=== PATIENT | female | born 1960 | race American Indian/Alaskan Native ===

== ENCOUNTER 2020-05-02 16:01 | Emergency (ER) | payer MEDICAID ==
[~2020-05-02] VITALS: Ht 157.5 cm; Wt 68.2 kg
[2020-05-02 16:36] LABS: BASOPHILS % (AUTO) 0.9 % (0-1); EOSINOPHILS # (AUTO) 0.1 X10'3 (0-0.9); EOSINOPHILS % (AUTO) 2.3 % (0-6); HEMATOCRIT 39.3 % (35.0-45.0); HEMOGLOBIN 12.6 g/dl (12.0-16.0); LYMPHOCYTES # (AUTO) 1.6 X10'3 (1.1-4.8); LYMPHOCYTES % (AUTO) 30.2 % (21-51); MEAN CORPUSCULAR HEMOGLOBIN 26.6 PG (27.0-31.0); MEAN CORPUSCULAR HGB CONC 31.9 g/dL (33.0-36.5); MEAN CORPUSCULAR VOLUME 83.2 FL (78-98); MEAN PLATELET VOLUME 9.3 FL (7.4-10.4); MONOCYTES # (AUTO) 0.6 X10'3 (0-0.9); MONOCYTES % (AUTO) 10.5 % (2-12); NEUTROPHILS % (AUTO) 56.1 % (42-75); PLATELET COUNT 237 X10'3 (140-440); RED BLOOD COUNT 4.73 X10'6 (4.20-5.60); RED CELL DISTRIBUTION WIDTH 16.5 % (11.5-14.5); WHITE BLOOD COUNT 5.3 X10'3 (4.5-11.0)
[2020-05-02 16:51] LABS: ALANINE AMINOTRANSFERASE 26 U/L (12-78); ALBUMIN 3.5 G/DL (3.4-5.0); ALBUMIN/GLOBULIN RATIO 0.9 (1.1-1.5); ALKALINE PHOSPHATASE 91 IU/L (46-116); ANION GAP 11 (8-16); ASPARTATE AMINO TRANSFERASE 18 U/L (10-37); BILIRUBIN,TOTAL 0.7 MG/DL (0.1-1.0); BLOOD UREA NITROGEN 15 MG/DL (7-18); BUN/CREATININE RATIO 13.2 (6.6-38.0); CALCIUM 8.9 MG/DL (8.5-10.1); CHLORIDE 105 MMOL/L (99-107); CREATININE 1.14 MG/DL (0.40-0.90); GLUCOSE 114 MG/DL (70-104); SODIUM 137 MMOL/L (135-145); TOTAL CARBON DIOXIDE 21.4 MMOL/L (24-32); TOTAL PROTEIN 7.2 G/DL (6.4-8.2); eGFR 49 ML/MIN
[2020-05-02] MEDS ORDERED: albuterol 2.5 MG/3 ML nebule NEB ONE (17:05)
[2020-05-02] MEDS ORDERED: furosemide 10 MG/1 ML 10ml inj IV ONE (17:05)
[2020-05-02] MEDS ORDERED: ondansetron/PF 4mg/2ml inj IV ONE (18:40)
[2020-05-02] MEDS ORDERED: POTA-82 PO (19:20)
[2020-05-02] MEDS ORDERED: ALBU8HFA PO (19:20)
[2020-05-02] MEDS ORDERED: FURO-150 PO (19:20)
--- NOTE | 2020-05-02 19:25 | NUR ---
[facility] CALLED FOR TRANSPORT ON [facility] ACCOUNT TO YVETTE SCHWARTZ. CHARGE NURSE AWARE AND NOTIFED OF ETA OF 20 MINS [facility]
[2020-05-02 19:31] VITALS: BP 143/86
== END 2020-05-02 19:33 | disposition home or self-care (01) ==
LOC: ER 16:03
DX: I50.9 Heart failure, unspecified (principal); R11.10 Vomiting, unspecified; R06.02 Shortness of breath; R07.89 Other chest pain; R05 Cough; J44.9 Chronic obstructive pulmonary disease, unspecified; E11.9 Type 2 diabetes mellitus without complications; F17.200 Nicotine dependence, unspecified, uncomplicated; Z86.73 Personal history of transient ischemic attack (TIA), and cerebral infarction without residual deficits; Z95.0 Presence of cardiac pacemaker; Z98.890 Other specified postprocedural states; Z88.0 Allergy status to penicillin; Z79.899 Other long term (current) drug therapy
CPT/HCPCS: 36415; 71045; 80053; 83880; 84484; 85025; 93005; 94640; 96374; 96375; 99285; J1940; J2405

== ENCOUNTER 2020-05-07 00:05 | Inpatient (IN) | payer MEDICAID ==
[~2020-05-07] VITALS: Ht 157.5 cm; Wt 72.7 kg
[2020-05-07] VITALS (14 sets, daily range): BP systolic 104–145; BP diastolic 46–97
[~2020-05-07 00:05] MED LIST: ALBU8HFA PO; FURO-150 PO; POTA-82 PO
[2020-05-07 00:37] LABS: BASOPHILS # (AUTO) 0.1 X10'3 (0-0.2); EOSINOPHILS # (AUTO) 0.2 X10'3 (0-0.9); HEMATOCRIT 42.4 % (35.0-45.0); HEMOGLOBIN 13.5 g/dl (12.0-16.0); PLATELET COUNT 230 X10'3 (140-440); WHITE BLOOD COUNT 4.6 X10'3 (4.5-11.0)
[2020-05-07 00:39] LABS: BASOPHILS % (AUTO) 1.1 % (0-1); EOSINOPHILS % (AUTO) 3.9 % (0-6); LYMPHOCYTES # (AUTO) 1.8 X10'3 (1.1-4.8); LYMPHOCYTES % (AUTO) 39.2 % (21-51); MEAN CORPUSCULAR HEMOGLOBIN 26.5 PG (27.0-31.0); MEAN CORPUSCULAR HGB CONC 31.8 g/dL (33.0-36.5); MEAN CORPUSCULAR VOLUME 83.2 FL (78-98); MEAN PLATELET VOLUME 9.6 FL (7.4-10.4); MONOCYTES # (AUTO) 0.6 X10'3 (0-0.9); MONOCYTES % (AUTO) 12.3 % (2-12); NEUTROPHILS % (AUTO) 43.5 % (42-75); RED BLOOD COUNT 5.09 X10'6 (4.20-5.60); RED CELL DISTRIBUTION WIDTH 16.7 % (11.5-14.5)
[2020-05-07 00:48] LABS: ALANINE AMINOTRANSFERASE 28 U/L (12-78); ALBUMIN 3.5 G/DL (3.4-5.0); ALBUMIN/GLOBULIN RATIO 0.9 (1.1-1.5); ALKALINE PHOSPHATASE 96 IU/L (46-116); ANION GAP 9 (8-16); ASPARTATE AMINO TRANSFERASE 20 U/L (10-37); BILIRUBIN,TOTAL 0.5 MG/DL (0.1-1.0); BLOOD UREA NITROGEN 19 MG/DL (7-18); BUN/CREATININE RATIO 14.6 (6.6-38.0); CALCIUM 8.9 MG/DL (8.5-10.1); CHLORIDE 104 MMOL/L (99-107); GLUCOSE 118 MG/DL (70-104); POTASSIUM 3.6 MMOL/L (3.5-5.1); SODIUM 142 MMOL/L (135-145); TOTAL CARBON DIOXIDE 29.3 MMOL/L (24-32); TOTAL PROTEIN 7.5 G/DL (6.4-8.2); eGFR 42 ML/MIN
[2020-05-07] MEDS ORDERED: furosemide 10 MG/1 ML 10ml inj IV ONE ×2 (01:40→02:20)
--- NOTE | 2020-05-07 01:48 | NUR ---
pt awaiting hospitalist. Provided a bag of her perscribed medications for med reconcilliatiion. Given lasix 40 mg. bp 150/111. Pt is polite and cooperative.
--- NOTE | 2020-05-07 01:58 | NUR ---
Dr. Johnson at bedside for admission. current vss.
[2020-05-07] MEDS ORDERED: DOCU100C40 PO (02:02)
[2020-05-07] MEDS ORDERED: LEVO150T8 PO (02:02)
[2020-05-07] MEDS ORDERED: IBUP-1986 PO (02:11)
[2020-05-07] MEDS ORDERED: OMEP-50 PO (02:11)
[2020-05-07] MEDS ORDERED: BUPR-319 PO (02:11)
[2020-05-07] MEDS ORDERED: TRAZ-256 PO (02:11)
[2020-05-07] MEDS ORDERED: [UNRECOGNIZED DRUG - CODE] PO (02:11)
[2020-05-07] MEDS ORDERED: VENL150T3 PO (02:11)
[2020-05-07] MEDS ORDERED: TOPI200T16 PO (02:11)
[2020-05-07] MEDS ORDERED: FURO20TA4 PO (02:11)
[2020-05-07] MEDS ORDERED: DIPHENHYDRAMINE PO PRN (02:15)
[2020-05-07] MEDS ORDERED: ACETAMINOPHEN PO PRN (02:15)
[2020-05-07] MEDS ORDERED: metoprolol tartrate 1mg/ml inj IV PRN (02:20)
[2020-05-07] MEDS ORDERED: diphenhydrAMINE 25mg capsule PO PRN (02:20)
[2020-05-07] MEDS ORDERED: acetaminophen 325mg tablet PO PRN ×2 (02:20)
[2020-05-07] MEDS ORDERED: nitroGLYCERIN 0.4mg SUBLingual tab SL PRN (02:20)
[2020-05-07] MEDS ORDERED: dextrose ORAL solution 15 GM/59 ML bottle PO PRN ×2 (02:20)
[2020-05-07] MEDS ORDERED: aminophylline 250mg/10ml inj. IV PRN (02:20)
[2020-05-07] MEDS ORDERED: bisacodyl 10mg suppository rectal RC PRN (02:20)
[2020-05-07] MEDS ORDERED: mag hydrox/Alum hydrox/simeth 30ml oral suspension PO PRN (02:20)
[2020-05-07] MEDS ORDERED: magnesium hydroxide 30ml (MOM) UD suspension PO PRN (02:20)
[2020-05-07] MEDS ORDERED: lisinopril 10 MG tablet PO ONE (02:20)
[2020-05-07] MEDS ORDERED: dextrose 50%-water 50ml dispensing syringe IV PRN ×2 (02:20)
[2020-05-07] MEDS ORDERED: diphenhydrAMINE 50 mg/ml inj IV PRN (02:20)
[2020-05-07] MEDS ORDERED: ondansetron/PF 4mg/2ml inj IV PRN (02:20)
[2020-05-07] MEDS ORDERED: glucagon, human recombinant 1mg kit SUBCUT PRN (02:20)
[2020-05-07] MEDS ORDERED: morphine 2 MG/ML inj. syringe IV PRN ×2 (02:20)
[2020-05-07] MEDS ORDERED: insulin Lispro (HumaLOG) vial - multi-dose SQ SCH (02:20)
[2020-05-07] MEDS ORDERED: MESSAGE TO PHARMACY PO ONE (02:20)
[2020-05-07 02:26] LABS: URINE AMPHETAMINE SCREEN NEGATIVE (Neg); URINE BARBITUATE SCREEN NEGATIVE (Neg); URINE BENZODIAZEPINES SCREEN NEGATIVE (Neg); URINE CANNABINOID SCREEN NEGATIVE (Neg); URINE COCAINE SCREEN NEGATIVE (Neg); URINE METHADONE SCREEN NEGATIVE (Neg); URINE OPIATE SCREEN NEGATIVE (Neg); URINE PHENCYCLIDINE SCREEN NEGATIVE (Neg)
--- NOTE | 2020-05-07 02:45 | NUR ---
Patient in room PCU 3023. I have received report from Mookie HWANG by telephone from ER and had the opportunity to ask questions and assume patient care once on the unit.
[2020-05-07 02:57] LABS: HEMOGLOBIN A1C 6.4 % (4.5-6.2)
[2020-05-07 03:06] LABS: MAGNESIUM 1.9 MG/DL (1.5-2.4)
[2020-05-07] MEDS ORDERED: regadenoson 0.4mg/5ml syringe IV ONE (06:00)
--- NOTE | 2020-05-07 06:35 | NUR ---
Problems reprioritized. Patient report given, questions answered & plan of care reviewed with Tamara HWANG.
[2020-05-07] MEDS: heparin, porcine 5000 units/ml vial SQ SCH ×2 (08:03→15:57)
[2020-05-07] MEDS: aspirin 81mg tablet.DR PO SCH (08:04)
[2020-05-07] MEDS: buPROPion SR 150mg tablet PO SCH ×2 (08:04→20:04)
[2020-05-07] MEDS: levoTHYROXINE 75mcg tablet PO SCH (08:04)
[2020-05-07] MEDS: venlafaxine XR 75mg capsule (Q24H) PO SCH (08:04)
[2020-05-07] MEDS: pantoprazole 40mg Tablet.DR PO SCH (08:04)
[2020-05-07] MEDS: docusate sod 100mg capsule PO SCH ×2 (08:04→20:03)
--- NOTE | 2020-05-07 12:26 | NUR ---
PAGER ID: [phone] MESSAGE: URIEL ON TELE![email or web address], THE FREEDOM REPORT IS AVAILABLE ON [id number]. I WILL ALSO LET DR. ERIC KNOW IN CASE YOU ARE UNAVAILABLE. THX
--- NOTE | 2020-05-07 12:31 | NUR ---
PAGER ID: [phone] MESSAGE: [email or web address], DR. LIVE[place]IENT [place] [id number] HAS FREEDOM REPORT AVAILABLE IF YOU ARE STILL COVERING FOR HER. I ALSO SENT HER A PAGE. THX.
[2020-05-07] MEDS: HYDROcodone/acetaminophen 5mg/325mg tablet PO PRN ×2 (15:56→20:04)
[2020-05-07] MEDS: traZODone 50mg tablet PO SCH (20:03)
[2020-05-07] MEDS: topiramate 100mg tablet PO SCH (20:05)
[2020-05-07] MEDS ORDERED: temazepam 15mg capsule PO PRN (21:00)
[2020-05-08] VITALS (12 sets, daily range): BP systolic 106–123; BP diastolic 64–76
[2020-05-08] MEDS: heparin, porcine 5000 units/ml vial SQ SCH ×4 (00:28→23:14)
--- NOTE | 2020-05-08 00:59 | NUR ---
Patient in room PCU 3023. I have received report from Tamara HWANG and had the opportunity to ask questions and assume patient care.
--- NOTE | 2020-05-08 06:08 | NUR ---
Problems reprioritized. Patient report given, questions answered & plan of care reviewed with Tamara HWANG.
[2020-05-08 06:21] LABS: BASOPHILS % (AUTO) 0.8 % (0-1); EOSINOPHILS # (AUTO) 0.3 X10'3 (0-0.9); EOSINOPHILS % (AUTO) 6.9 % (0-6); HEMATOCRIT 40.3 % (35.0-45.0); HEMOGLOBIN 12.9 g/dl (12.0-16.0); LYMPHOCYTES # (AUTO) 1.7 X10'3 (1.1-4.8); LYMPHOCYTES % (AUTO) 39.3 % (21-51); MEAN CORPUSCULAR HEMOGLOBIN 26.3 PG (27.0-31.0); MEAN CORPUSCULAR HGB CONC 31.9 g/dL (33.0-36.5); MEAN CORPUSCULAR VOLUME 82.4 FL (78-98); MEAN PLATELET VOLUME 9.6 FL (7.4-10.4); MONOCYTES # (AUTO) 0.6 X10'3 (0-0.9); MONOCYTES % (AUTO) 13.7 % (2-12); NEUTROPHILS # (AUTO) 1.7 X10'3 (1.8-7.7); NEUTROPHILS % (AUTO) 39.3 % (42-75); PLATELET COUNT 214 X10'3 (140-440); RED CELL DISTRIBUTION WIDTH 16.4 % (11.5-14.5); WHITE BLOOD COUNT 4.2 X10'3 (4.5-11.0)
[2020-05-08 06:39] LABS: ALANINE AMINOTRANSFERASE 23 U/L (12-78); ALBUMIN/GLOBULIN RATIO 0.8 (1.1-1.5); ALKALINE PHOSPHATASE 78 IU/L (46-116); ANION GAP 11 (8-16); ASPARTATE AMINO TRANSFERASE 24 U/L (10-37); BILIRUBIN,TOTAL 0.6 MG/DL (0.1-1.0); BLOOD UREA NITROGEN 24 MG/DL (7-18); BUN/CREATININE RATIO 19.4 (6.6-38.0); CALCIUM 8.6 MG/DL (8.5-10.1); CHLORIDE 104 MMOL/L (99-107); CHOL/HDL RATIO 3.6 (0.00-4.99); CHOLESTEROL 104 MG/DL (0-200); CREATININE 1.24 MG/DL (0.40-0.90); GLUCOSE 96 MG/DL (70-104); HDL CHOLESTEROL 29 MG/DL (35-60); LDL CHOLESTEROL 67 MG/DL (50-100); POTASSIUM 3.6 MMOL/L (3.5-5.1); SODIUM 139 MMOL/L (135-145); TOTAL CARBON DIOXIDE 24.3 MMOL/L (24-32); TOTAL PROTEIN 6.6 G/DL (6.4-8.2); TRIGLYCERIDES 62 MG/DL (20-135); eGFR 44 ML/MIN
[2020-05-08] MEDS: levoTHYROXINE 75mcg tablet PO SCH (07:31)
[2020-05-08] MEDS: docusate sod 100mg capsule PO SCH ×2 (07:31→19:32)
[2020-05-08] MEDS: venlafaxine XR 75mg capsule (Q24H) PO SCH (07:34)
[2020-05-08] MEDS: aspirin 81mg tablet.DR PO SCH (07:34)
[2020-05-08] MEDS: pantoprazole 40mg Tablet.DR PO SCH (07:34)
[2020-05-08] MEDS: buPROPion SR 150mg tablet PO SCH ×2 (07:34→19:33)
[2020-05-08] MEDS: normal saline 1000ml 1,000 ML IV SCH (12:47)
[2020-05-08] MEDS ORDERED: fentaNYL/PF 50MCG/1 ML 2ML syringe ONE (14:42)
[2020-05-08] MEDS ORDERED: iohexol 350MG/ML 100ml bottle IV ONE ×2 (14:42→15:22)
[2020-05-08] MEDS ORDERED: LIDOcaine 1% (10mg/ml)w/preservative injection 20ml MDV ONE (14:42)
[2020-05-08] MEDS ORDERED: heparin 1,000unit/ml 10ml vial 10 ML ONE (14:42)
[2020-05-08] MEDS ORDERED: midazolam 1 mg/ML 2ml injection ONE ×2 (14:42→15:07)
[2020-05-08] MEDS ORDERED: proCHLORperazine 10 MG/2 ml inj ONE (15:13)
--- NOTE | 2020-05-08 16:15 | NUR ---
Received call from Dr Hickey, requesting that the patient have her pacemaker interrogated. Orders placed and telecine operator made aware.
--- NOTE | 2020-05-08 16:27 | NUR ---
Entered patient's room to inquire what kind of pacemaker she has. Found patient (Post angiogram) sitting up at the bedside. Assisted patient back to bed and educated her on the importance of laying flat for 6 hours. Held pressure for 5 mins. No hematoma observed. Pulses palpable.
--- NOTE | 2020-05-08 16:33 | NUR ---
Called Dr Hickey' answering service to notify that the patient was found sitting up at bedside. Addendum: 05/08/20 at 1638 by Neda Proctor RN Received call back from Dr. Hickey. He is aware and not surprised. Stated to contact the Hospitalist for further orders.
--- NOTE | 2020-05-08 16:42 | NUR ---
Paged Dr Castro "PAGER ID: [phone] MESSAGE: [phone] [address] [id number] Vandana Staton patient returned from labor relations representative. Supposed to be flat for 6 hrs and was found sitting up at bedside. Can we have an order for a sitter?"
--- NOTE | 2020-05-08 18:00 | NUR ---
Patient in room PCU 3023. I have received report from Tamara HWANG and had the opportunity to ask questions and assume patient care.
[2020-05-08] MEDS ORDERED: OXAZEpam 15mg capsule PO PRN (18:55)
[2020-05-08] MEDS ORDERED: proCHLORperazine 10 MG/2 ml inj IV PRN (18:55)
[2020-05-08] MEDS ORDERED: nitroGLYCERIN 0.4mg SUBLingual tab SL PRN (18:55)
[2020-05-08] MEDS: traZODone 50mg tablet PO SCH (19:33)
[2020-05-08] MEDS: topiramate 100mg tablet PO SCH (19:34)
[2020-05-09] VITALS (7 sets, daily range): BP systolic 101–148; BP diastolic 61–95
[2020-05-09] MEDS: normal saline 1000ml 1,000 ML IV SCH ×3 (01:16→23:39)
[2020-05-09 06:21] LABS: BASOPHILS % (AUTO) 0.3 % (0-1); EOSINOPHILS % (AUTO) 0.6 % (0-6); HEMATOCRIT 41.8 % (35.0-45.0); LYMPHOCYTES # (AUTO) 0.7 X10'3 (1.1-4.8); LYMPHOCYTES % (AUTO) 14.1 % (21-51); MEAN CORPUSCULAR HEMOGLOBIN 26.1 PG (27.0-31.0); MEAN CORPUSCULAR HGB CONC 31.1 g/dL (33.0-36.5); MEAN CORPUSCULAR VOLUME 83.8 FL (78-98); MEAN PLATELET VOLUME 9.7 FL (7.4-10.4); MONOCYTES # (AUTO) 0.4 X10'3 (0-0.9); MONOCYTES % (AUTO) 7.6 % (2-12); NEUTROPHILS # (AUTO) 3.9 X10'3 (1.8-7.7); NEUTROPHILS % (AUTO) 77.4 % (42-75); PLATELET COUNT 215 X10'3 (140-440); RED BLOOD COUNT 4.98 X10'6 (4.20-5.60); RED CELL DISTRIBUTION WIDTH 16.5 % (11.5-14.5)
--- NOTE | 2020-05-09 06:24 | NUR ---
Problems reprioritized. Patient report given, questions answered & plan of care reviewed with Tamara HWANG.
[2020-05-09 06:48] LABS: ALANINE AMINOTRANSFERASE 31 U/L (12-78); ALBUMIN 3.5 G/DL (3.4-5.0); ALBUMIN/GLOBULIN RATIO 0.9 (1.1-1.5); ALKALINE PHOSPHATASE 85 IU/L (46-116); ANION GAP 10 (8-16); ASPARTATE AMINO TRANSFERASE 32 U/L (10-37); BILIRUBIN,TOTAL 0.7 MG/DL (0.1-1.0); BLOOD UREA NITROGEN 24 MG/DL (7-18); BUN/CREATININE RATIO 21.1 (6.6-38.0); CHLORIDE 108 MMOL/L (99-107); CREATININE 1.14 MG/DL (0.40-0.90); GLUCOSE 122 MG/DL (70-104); POTASSIUM 4.3 MMOL/L (3.5-5.1); SODIUM 140 MMOL/L (135-145); TOTAL PROTEIN 7.5 G/DL (6.4-8.2); eGFR 49 ML/MIN
[2020-05-09] MEDS: levoTHYROXINE 75mcg tablet PO SCH (07:43)
[2020-05-09] MEDS: pantoprazole 40mg Tablet.DR PO SCH (07:44)
[2020-05-09] MEDS: buPROPion SR 150mg tablet PO SCH ×2 (07:44→20:20)
[2020-05-09] MEDS: docusate sod 100mg capsule PO SCH ×2 (07:44→20:20)
[2020-05-09] MEDS: aspirin 81mg tablet.DR PO SCH (07:44)
[2020-05-09] MEDS: venlafaxine XR 75mg capsule (Q24H) PO SCH (07:44)
[2020-05-09] MEDS: HYDROcodone/acetaminophen 10/325mg tab PO PRN ×2 (07:54→16:53)
[2020-05-09] MEDS: heparin, porcine 5000 units/ml vial SQ SCH ×3 (08:00→23:37)
--- NOTE | 2020-05-09 08:10 | NUR ---
Dr. Castro notified that patient is complaining of numbness/tingling in her right leg, shadowing is noted to puncture site from last night, no new drainage today. No new orders at this time, will continue to monitor Addendum: 05/09/20 at 0813 by Tamara Lyman RN Dr. Rodriguez notified of above information
--- NOTE | 2020-05-09 08:22 | NUR ---
Left message with Dr. Hickey's answering service to notified that patient is complaining of numbness/tingling in her right leg, shadowing is noted to puncture site from last night, no new drainage today.
--- NOTE | 2020-05-09 18:30 | NUR ---
Patient in room PCU 3023. I have received report from Tamara HWANG and had the opportunity to ask questions and assume patient care.
[2020-05-09] MEDS: topiramate 100mg tablet PO SCH (20:20)
[2020-05-09] MEDS: traZODone 50mg tablet PO SCH (20:20)
[2020-05-10 02:00] VITALS: BP 131/89
--- NOTE | 2020-05-10 03:00 | NUR ---
Pt slept about 6 hours last night. O2 saturations around 0300 dipped to 85-88% and pt c/o of slight SOB. Pt was placed on 2L O2 for comfort and O2 demand. O2 saturations came up to 97 and pt is resting comfortably after O2 placed
--- NOTE | 2020-05-10 05:45 | NUR ---
Pt c/o of Nausea and overall abdominal discomfort. Zofran was administered per MD order prn. When zofran was reassessed after administration pt stated it was effective and she no longer is experiencing SOB, nausea or abd discomfort.
--- NOTE | 2020-05-10 06:22 | NUR ---
Problems reprioritized. Patient report given, questions answered & plan of care reviewed with Tamara HWANG.
[2020-05-10 06:49] LABS: BASOPHILS % (AUTO) 0.6 % (0-1); EOSINOPHILS # (AUTO) 0.1 X10'3 (0-0.9); EOSINOPHILS % (AUTO) 1.4 % (0-6); HEMATOCRIT 41.4 % (35.0-45.0); HEMOGLOBIN 13.1 g/dl (12.0-16.0); LYMPHOCYTES % (AUTO) 33.7 % (21-51); MEAN CORPUSCULAR HEMOGLOBIN 26.5 PG (27.0-31.0); MEAN CORPUSCULAR HGB CONC 31.6 g/dL (33.0-36.5); MEAN CORPUSCULAR VOLUME 83.9 FL (78-98); MEAN PLATELET VOLUME 10.1 FL (7.4-10.4); MONOCYTES # (AUTO) 0.8 X10'3 (0-0.9); MONOCYTES % (AUTO) 12.9 % (2-12); NEUTROPHILS % (AUTO) 51.4 % (42-75); PLATELET COUNT 222 X10'3 (140-440); RED BLOOD COUNT 4.93 X10'6 (4.20-5.60); RED CELL DISTRIBUTION WIDTH 16.8 % (11.5-14.5); WHITE BLOOD COUNT 5.9 X10'3 (4.5-11.0)
[2020-05-10 07:00] VITALS: BP 127/92
[2020-05-10 07:06] LABS: ALANINE AMINOTRANSFERASE 33 U/L (12-78); ALBUMIN 3.5 G/DL (3.4-5.0); ALBUMIN/GLOBULIN RATIO 0.9 (1.1-1.5); ALKALINE PHOSPHATASE 92 IU/L (46-116); ANION GAP 13 (8-16); ASPARTATE AMINO TRANSFERASE 38 U/L (10-37); BILIRUBIN,TOTAL 0.9 MG/DL (0.1-1.0); BLOOD UREA NITROGEN 26 MG/DL (7-18); BUN/CREATININE RATIO 20.3 (6.6-38.0); CALCIUM 8.9 MG/DL (8.5-10.1); CHLORIDE 107 MMOL/L (99-107); CREATININE 1.28 MG/DL (0.40-0.90); GLUCOSE 93 MG/DL (70-104); POTASSIUM 4.2 MMOL/L (3.5-5.1); SODIUM 141 MMOL/L (135-145); TOTAL CARBON DIOXIDE 21.2 MMOL/L (24-32); TOTAL PROTEIN 7.4 G/DL (6.4-8.2); eGFR 43 ML/MIN
--- NOTE | 2020-05-10 07:13 | NUR ---
S/W Dr. Rodriguez that patient is complaining of SOB and was placed on 1L NC for sat of 88% overnight. Still has c/o r leg pain. Shadowing on r leg dressing increased slightly overnight. No new orders at this time
[2020-05-10] MEDS: pantoprazole 40mg Tablet.DR PO SCH (07:30)
[2020-05-10] MEDS: aspirin 81mg tablet.DR PO SCH (07:30)
[2020-05-10] MEDS: docusate sod 100mg capsule PO SCH (07:30)
[2020-05-10] MEDS: venlafaxine XR 75mg capsule (Q24H) PO SCH (07:30)
[2020-05-10] MEDS: levoTHYROXINE 75mcg tablet PO SCH (07:30)
[2020-05-10] MEDS: buPROPion SR 150mg tablet PO SCH (07:30)
[2020-05-10] MEDS: heparin, porcine 5000 units/ml vial SQ SCH (07:31)
[2020-05-10] MEDS ORDERED: ASPI-1071 PO (10:08)
[2020-05-10] MEDS ORDERED: LISI-790 PO (10:10)
[2020-05-10 11:00] VITALS: BP 130/82
--- NOTE | 2020-05-10 12:21 | NUR ---
Patient is stable for discharge per MD orders. All discharge instructions reviewed with patient and all questions answered. New prescriptions sent to pharmacy and patient mediation retrieved from hospital pharmacy and returned to patient. PIV and telemonitoring discontinued . all belongs collected and send with patient. Patient wheeled to [facility] and transported home via private vehicle
== END 2020-05-10 12:14 | disposition home or self-care (01) | DRG 191 ==
LOC: ER 00:06 → ED HOLD 02:35 → PCU 3S 02:50
PROVIDERS: ADMIT Family Medicine; ATTEND Internal Medicine
PROC: 4A02XM4 Measurement of Cardiac Total Activity, External Approach (ICD-10-PCS; 2020-05-07)
PROC: 3E073KZ Introduction of Other Diagnostic Substance into Coronary Artery, Percutaneous Approach (ICD-10-PCS; 2020-05-07)
PROC: 4A023N7 Measurement of Cardiac Sampling and Pressure, Left Heart, Percutaneous Approach (ICD-10-PCS; principal; 2020-05-08)
PROC: B41F1ZZ Fluoroscopy of Right Lower Extremity Arteries using Low Osmolar Contrast (ICD-10-PCS; 2020-05-08)
PROC: B2111ZZ Fluoroscopy of Multiple Coronary Arteries using Low Osmolar Contrast (ICD-10-PCS; 2020-05-08)
PROC: B2151ZZ Fluoroscopy of Left Heart using Low Osmolar Contrast (ICD-10-PCS; 2020-05-08)
DX: I25.110 Atherosclerotic heart disease of native coronary artery with unstable angina pectoris (principal); I50.33 Acute on chronic diastolic (congestive) heart failure; I13.0 Hypertensive heart and chronic kidney disease with heart failure and stage 1 through stage 4 chronic kidney disease, or unspecified chronic kidney disease; E03.9 Hypothyroidism, unspecified; F32.9 Major depressive disorder, single episode, unspecified; E11.22 Type 2 diabetes mellitus with diabetic chronic kidney disease; G25.81 Restless legs syndrome; F17.200 Nicotine dependence, unspecified, uncomplicated; I42.9 Cardiomyopathy, unspecified; I49.8 Other specified cardiac arrhythmias; R10.31 Right lower quadrant pain; J44.9 Chronic obstructive pulmonary disease, unspecified; N18.30 Chronic kidney disease, stage 3 unspecified; Z82.49 Family history of ischemic heart disease and other diseases of the circulatory system; I25.2 Old myocardial infarction; Z86.73 Personal history of transient ischemic attack (TIA), and cerebral infarction without residual deficits; Z95.0 Presence of cardiac pacemaker; Z88.0 Allergy status to penicillin; Z91.19 Patient's noncompliance with other medical treatment and regimen; Z79.899 Other long term (current) drug therapy
CPT/HCPCS: 36415; 71045; 78452; 80053; 80061; 80305; 82948; 83036; 83735; 83880; 84443; 84484; 85025; 87081; 93005; 93017; 93458; 96374; 99152; 99285; A4620; A6258; A9500; C1760; C1769; G0378; J0780; J1644; J1815; J1940; J2001; J2250; J2270; J2405; J2785; J3010; J7030; Q9967

== ENCOUNTER 2020-05-19 17:45 | Emergency (ER) | payer MEDICAID ==
[~2020-05-19] VITALS: Ht 162.6 cm; Wt 80.0 kg
[~2020-05-19 17:45] MED LIST changes: +ASPI-1071 PO; +BUPR-319 PO; +DOCU100C40 PO; -FURO-150 PO; +FURO20TA4 PO; +LEVO150T8 PO; +LISI-790 PO; +OMEP-50 PO; +TOPI200T16 PO; +TRAZ-256 PO; +VENL150T3 PO; +[UNRECOGNIZED DRUG - CODE] PO
[2020-05-19 18:00] VITALS: BP 160/76
[2020-05-19] MEDS ORDERED: HYDROcodone/acetaminophen 5mg/325mg tablet PO ONE (19:00)
[2020-05-19] MEDS ORDERED: ibuprofen tablet 400 MG TABLET PO ONE (19:00)
[2020-05-19] MEDS ORDERED: ibuprofen 200mg tablet PO ONE (19:00)
[2020-05-19] MEDS ORDERED: tetanus & diphtheria toxoid (Td) vaccine 0.5ml IMVAC ONE (19:00)
[2020-05-19] MEDS ORDERED: CEPH-585 PO (19:45)
== END 2020-05-19 20:19 | disposition home or self-care (01) ==
LOC: ER 17:45
DX: R07.89 Other chest pain (principal); R07.81 Pleurodynia; H92.01 Otalgia, right ear; R42 Dizziness and giddiness; J45.909 Unspecified asthma, uncomplicated; J44.9 Chronic obstructive pulmonary disease, unspecified; E11.9 Type 2 diabetes mellitus without complications; F15.90 Other stimulant use, unspecified, uncomplicated; Z86.73 Personal history of transient ischemic attack (TIA), and cerebral infarction without residual deficits; Z98.890 Other specified postprocedural states; Z95.0 Presence of cardiac pacemaker; Z88.0 Allergy status to penicillin; Z79.82 Long term (current) use of aspirin; Z79.899 Other long term (current) drug therapy
CPT/HCPCS: 71101; 90471; 90715; 93005; 99284

== ENCOUNTER 2020-05-21 06:08 | Emergency (ER) | payer MEDICAID ==
[~2020-05-21] VITALS: Ht 167.6 cm; Wt 72.7 kg
[~2020-05-21 06:08] MED LIST changes: +CEPH-585 PO
[2020-05-21 06:11] VITALS: BP 149/94
[2020-05-21] MEDS ORDERED: ondansetron 4mg rapidly disintigrating tab PO ONE (06:40)
[2020-05-21] MEDS ORDERED: ONDA4TAB6 PO (06:41)
--- NOTE | 2020-05-21 07:08 | NUR ---
PT TOLERATED THE PO CHALLENGE. PT HAD NO VOMITING
== END 2020-05-21 07:10 | disposition home or self-care (01) ==
LOC: ER 06:08
DX: S40.021A Contusion of right upper arm, initial encounter (principal); S00.411A Abrasion of right ear, initial encounter; R07.89 Other chest pain; K29.00 Acute gastritis without bleeding; J44.9 Chronic obstructive pulmonary disease, unspecified; E11.9 Type 2 diabetes mellitus without complications; F15.90 Other stimulant use, unspecified, uncomplicated; Z86.73 Personal history of transient ischemic attack (TIA), and cerebral infarction without residual deficits; Z98.890 Other specified postprocedural states; Z95.0 Presence of cardiac pacemaker; Z88.0 Allergy status to penicillin; Z79.82 Long term (current) use of aspirin; Z79.899 Other long term (current) drug therapy; W18.39XA Other fall on same level, initial encounter; Y93.89 Activity, other specified; Y92.89 Other specified places as the place of occurrence of the external cause; Y99.8 Other external cause status
CPT/HCPCS: 99283

== ENCOUNTER 2020-05-23 03:41 | Emergency (ER) | payer MEDICAID ==
[~2020-05-23] VITALS: Ht 160 cm; Wt 68.2 kg
[~2020-05-23 03:41] MED LIST changes: +ONDA4TAB6 PO
[2020-05-23] MEDS ORDERED: metoclopramide 5 mg/ml inj IV ONE (03:55)
[2020-05-23 04:26] LABS: BASOPHILS % (AUTO) 0.7 % (0-1); EOSINOPHILS # (AUTO) 0.2 X10'3 (0-0.9); HEMOGLOBIN 12.4 g/dl (12.0-16.0); MONOCYTES # (AUTO) 0.6 X10'3 (0-0.9); RED CELL DISTRIBUTION WIDTH 17.6 % (11.5-14.5)
[2020-05-23 04:27] LABS: HEMATOCRIT 39.9 % (35.0-45.0); LYMPHOCYTES # (AUTO) 1.9 X10'3 (1.1-4.8); LYMPHOCYTES % (AUTO) 34.8 % (21-51); MEAN CORPUSCULAR HEMOGLOBIN 25.2 PG (27.0-31.0); MEAN CORPUSCULAR VOLUME 81.1 FL (78-98); MONOCYTES % (AUTO) 11.6 % (2-12); NEUTROPHILS # (AUTO) 2.7 X10'3 (1.8-7.7); NEUTROPHILS % (AUTO) 49.9 % (42-75); PLATELET COUNT 281 X10'3 (140-440); RED BLOOD COUNT 4.92 X10'6 (4.20-5.60); WHITE BLOOD COUNT 5.5 X10'3 (4.5-11.0)
[2020-05-23 04:41] LABS: ALANINE AMINOTRANSFERASE 147 U/L (12-78); ALBUMIN 2.9 G/DL (3.4-5.0); ALBUMIN/GLOBULIN RATIO 0.7 (1.1-1.5); ALKALINE PHOSPHATASE 113 IU/L (46-116); ANION GAP 11 (8-16); ASPARTATE AMINO TRANSFERASE 83 U/L (10-37); BILIRUBIN,TOTAL 0.8 MG/DL (0.1-1.0); BLOOD UREA NITROGEN 20 MG/DL (7-18); BUN/CREATININE RATIO 18.9 (6.6-38.0); CALCIUM 8.2 MG/DL (8.5-10.1); CHLORIDE 104 MMOL/L (99-107); CREATININE 1.06 MG/DL (0.40-0.90); GLUCOSE 107 MG/DL (70-104); LIPASE 146 U/L (73-393); SODIUM 137 MMOL/L (135-145); TOTAL CARBON DIOXIDE 21.9 MMOL/L (24-32); TOTAL PROTEIN 7.1 G/DL (6.4-8.2); eGFR 53 ML/MIN
[2020-05-23 04:56] LABS: CLARITY,URINE SLIGHTLY CLOUDY (Clear); GLUCOSE, URINE NEGATIVE (Neg); KETONES,URINE NEGATIVE (Neg); LEUKOCYTE ESTERASE ,URINE NEGATIVE (Neg); NITRITES, URINE NEGATIVE (Neg); OCCULT BLOOD,URINE NEGATIVE (Neg); PH,URINE 5.5 (4.8-8.0); PROTEIN,URINE 100 mg/dl (Neg)
[2020-05-23 05:01] LABS: COLOR,URINE DARK YELLOW (Yellow); UA COLLECTION TYPE CLN CATCH MIDSTREAM
[2020-05-23 05:02] LABS: BACTERIA,URINE FEW /HPF (Neg); HYALINE CASTS 0-3 /LPF (NEGATIVE); MUCUS STRANDS MANY /LPF (Neg); RBC,URINE NONE SEEN /HPF (0-2); SQUAMOUS EPITHELIAL CELL,UR MANY /LPF (FEW); WBC,URINE 0-4 /HPF (0-4)
[2020-05-23] MEDS ORDERED: FURO20TA4 PO (05:08)
[2020-05-23] MEDS ORDERED: OMEP-50 PO (05:08)
[2020-05-23] MEDS ORDERED: ONDA4TAB6 PO (05:08)
[2020-05-23] MEDS ORDERED: LEVO150T8 PO (05:08)
[2020-05-23] MEDS ORDERED: LISI-790 PO (05:08)
[2020-05-23 05:35] VITALS: BP 170/56
== END 2020-05-23 05:30 | disposition home or self-care (01) ==
LOC: ER 03:42
DX: R11.2 Nausea with vomiting, unspecified (principal); R07.89 Other chest pain; R06.02 Shortness of breath; J44.9 Chronic obstructive pulmonary disease, unspecified; E11.9 Type 2 diabetes mellitus without complications; F15.90 Other stimulant use, unspecified, uncomplicated; Z76.0 Encounter for issue of repeat prescription; Z86.73 Personal history of transient ischemic attack (TIA), and cerebral infarction without residual deficits; Z95.0 Presence of cardiac pacemaker; Z98.890 Other specified postprocedural states; Z88.0 Allergy status to penicillin; Z79.82 Long term (current) use of aspirin; Z79.899 Other long term (current) drug therapy
CPT/HCPCS: 36415; 80053; 81001; 83690; 85025; 96374; 99283; J2765

== ENCOUNTER 2020-06-02 23:20 | Emergency (ER) | payer MEDICAID ==
[~2020-06-02] VITALS: Ht 157.5 cm; Wt 68.2 kg
[2020-06-02 23:47] LABS: BASOPHILS % (AUTO) 1.2 % (0-1); EOSINOPHILS # (AUTO) 0.2 X10'3 (0-0.9); EOSINOPHILS % (AUTO) 4.2 % (0-6); HEMATOCRIT 38.9 % (35.0-45.0); HEMOGLOBIN 12.3 g/dl (12.0-16.0); LYMPHOCYTES # (AUTO) 1.4 X10'3 (1.1-4.8); LYMPHOCYTES % (AUTO) 34.7 % (21-51); MEAN CORPUSCULAR HEMOGLOBIN 24.6 PG (27.0-31.0); MEAN CORPUSCULAR HGB CONC 31.6 g/dL (33.0-36.5); MEAN CORPUSCULAR VOLUME 77.9 FL (78-98); MEAN PLATELET VOLUME 8.5 FL (7.4-10.4); MONOCYTES # (AUTO) 0.5 X10'3 (0-0.9); MONOCYTES % (AUTO) 13.4 % (2-12); NEUTROPHILS # (AUTO) 1.8 X10'3 (1.8-7.7); NEUTROPHILS % (AUTO) 46.5 % (42-75); PLATELET COUNT 264 X10'3 (140-440); RED BLOOD COUNT 4.99 X10'6 (4.20-5.60); RED CELL DISTRIBUTION WIDTH 18.4 % (11.5-14.5); WHITE BLOOD COUNT 3.9 X10'3 (4.5-11.0)
[2020-06-03 00:17] LABS: ALANINE AMINOTRANSFERASE 45 U/L (12-78); ALBUMIN/GLOBULIN RATIO 0.8 (1.1-1.5); ALKALINE PHOSPHATASE 93 IU/L (46-116); ANION GAP 10 (8-16); ASPARTATE AMINO TRANSFERASE 35 U/L (10-37); BILIRUBIN,TOTAL 0.7 MG/DL (0.1-1.0); BLOOD UREA NITROGEN 21 MG/DL (7-18); BUN/CREATININE RATIO 21.6 (6.6-38.0); CALCIUM 8.5 MG/DL (8.5-10.1); CHLORIDE 106 MMOL/L (99-107); CREATININE 0.97 MG/DL (0.40-0.90); GLUCOSE 132 MG/DL (70-104); POTASSIUM 4.2 MMOL/L (3.5-5.1); SODIUM 138 MMOL/L (135-145); TOTAL CARBON DIOXIDE 21.7 MMOL/L (24-32); eGFR 59 ML/MIN
[2020-06-03 01:07] VITALS: BP 131/92
== END 2020-06-03 01:09 | disposition home or self-care (01) ==
LOC: ER 23:20
DX: R07.89 Other chest pain (principal); R06.02 Shortness of breath; I25.10 Atherosclerotic heart disease of native coronary artery without angina pectoris; I50.9 Heart failure, unspecified; J44.9 Chronic obstructive pulmonary disease, unspecified; E11.9 Type 2 diabetes mellitus without complications; F17.200 Nicotine dependence, unspecified, uncomplicated; F15.90 Other stimulant use, unspecified, uncomplicated; Z86.73 Personal history of transient ischemic attack (TIA), and cerebral infarction without residual deficits; Z95.0 Presence of cardiac pacemaker; Z98.890 Other specified postprocedural states; Z88.0 Allergy status to penicillin; Z88.6 Allergy status to analgesic agent; Z88.8 Allergy status to other drugs, medicaments and biological substances; Z79.82 Long term (current) use of aspirin; Z79.2 Long term (current) use of antibiotics; Z79.899 Other long term (current) drug therapy
CPT/HCPCS: 36415; 71045; 80053; 83880; 84484; 85025; 93005; 99285

== ENCOUNTER 2022-05-12 15:11 | Emergency (ER) | payer MEDICAID ==
[~2022-05-12] VITALS: Ht 157.5 cm; Wt 77.3 kg
[~2022-05-12 15:11] MED LIST changes: -ALBU8HFA PO; -CEPH-585 PO; -LISI-790 PO; +LISI5TAB22 PO; -OMEP-50 PO; +OMEP20CA16 PO; -[UNRECOGNIZED DRUG - CODE] PO
[2022-05-12 15:17] VITALS: BP 137/93
[2022-05-12 18:54] LABS: BASOPHILS % (AUTO) 0.7 % (0-1); EOSINOPHILS # (AUTO) 0.3 X10'3 (0-0.9); HEMATOCRIT 39.7 % (35.0-45.0); HEMOGLOBIN 13.2 g/dl (12.0-16.0); LYMPHOCYTES % (AUTO) 36.4 % (21-51); MEAN CORPUSCULAR HEMOGLOBIN 29.1 PG (27.0-31.0); MEAN CORPUSCULAR HGB CONC 33.2 g/dL (33.0-36.5); MEAN CORPUSCULAR VOLUME 87.8 FL (78-98); MEAN PLATELET VOLUME 9.5 FL (7.4-10.4); MONOCYTES # (AUTO) 0.4 X10'3 (0-0.9); NEUTROPHILS # (AUTO) 2.7 X10'3 (1.8-7.7); NEUTROPHILS % (AUTO) 49.9 % (42-75); PLATELET COUNT 214 X10'3 (140-440); RED BLOOD COUNT 4.52 X10'6 (4.20-5.60); RED CELL DISTRIBUTION WIDTH 14.8 % (11.5-14.5); WHITE BLOOD COUNT 5.5 X10'3 (4.5-11.0)
[2022-05-12 19:06] LABS: ALANINE AMINOTRANSFERASE 69 U/L (12-78); ALBUMIN 3.6 G/DL (3.4-5.0); ALBUMIN/GLOBULIN RATIO 0.9 (1.1-1.5); ALKALINE PHOSPHATASE 98 IU/L (46-116); ANION GAP 7 (8-16); ASPARTATE AMINO TRANSFERASE 41 U/L (10-37); BILIRUBIN,TOTAL 0.6 MG/DL (0.1-1.0); BLOOD UREA NITROGEN 19 MG/DL (7-18); BUN/CREATININE RATIO 17.6 (10.0-20.0); CALCIUM 8.6 MG/DL (8.5-10.1); CHLORIDE 105 MMOL/L (99-107); CREATININE 1.08 MG/DL (0.40-0.90); GLUCOSE 116 MG/DL (70-104); POTASSIUM 3.6 MMOL/L (3.5-5.1); SODIUM 141 MMOL/L (135-145); TOTAL CARBON DIOXIDE 29.1 MMOL/L (24-32); TOTAL PROTEIN 7.6 G/DL (6.4-8.2); eGFR 51 ML/MIN
[2022-05-12] MEDS ORDERED: POTA10CA45 PO (20:19)
[2022-05-12] MEDS ORDERED: FURO-150 PO (20:19)
== END 2022-05-12 20:31 | disposition home or self-care (01) ==
LOC: ER 15:11
DX: I50.9 Heart failure, unspecified (principal); I25.10 Atherosclerotic heart disease of native coronary artery without angina pectoris; J44.9 Chronic obstructive pulmonary disease, unspecified; E11.9 Type 2 diabetes mellitus without complications; Z86.73 Personal history of transient ischemic attack (TIA), and cerebral infarction without residual deficits; F15.90 Other stimulant use, unspecified, uncomplicated; Z98.890 Other specified postprocedural states; Z95.0 Presence of cardiac pacemaker; Z88.0 Allergy status to penicillin; Z88.6 Allergy status to analgesic agent; Z79.82 Long term (current) use of aspirin; Z88.5 Allergy status to narcotic agent; Z79.899 Other long term (current) drug therapy
CPT/HCPCS: 36415; 71045; 80053; 83880; 84484; 85025; 93005; 99285

== ENCOUNTER 2022-07-06 21:02 | Emergency (ER) | payer MEDICAID ==
[~2022-07-06] VITALS: Ht 157.5 cm; Wt 72.7 kg
[~2022-07-06 21:02] MED LIST changes: +POTA-366 PO; -POTA-82 PO
[2022-07-06 21:27] VITALS: BP 169/97
== END 2022-07-06 23:28 | disposition left against medical advice (07) ==
LOC: ER 21:02
DX: R05.9 Cough, unspecified (principal); Z53.21 Procedure and treatment not carried out due to patient leaving prior to being seen by health care provider
CPT/HCPCS: 99281

== ENCOUNTER 2022-07-10 12:03 | Emergency (ER) | payer MEDICAID ==
[~2022-07-10] VITALS: Ht 157.5 cm; Wt 68.2 kg
[2022-07-10] MEDS ORDERED: albuterol 2.5 MG/3 ML nebule NEB ONE (12:05)
[2022-07-10] MEDS ORDERED: methylPREDNISolone sod succ 125mg/2ml vial IV ONE (12:05)
[2022-07-10] MEDS ORDERED: ipratropium/albuterol 3ml nebule NEB ONE (12:05)
[2022-07-10 12:07] VITALS: BP 140/87
[2022-07-10 12:49] LABS: BASOPHILS % (AUTO) 0.6 % (0-1); EOSINOPHILS # (AUTO) 0.2 X10'3 (0-0.9); EOSINOPHILS % (AUTO) 3.6 % (0-6); HEMATOCRIT 43.3 % (35.0-45.0); HEMOGLOBIN 14.2 g/dl (12.0-16.0); LYMPHOCYTES # (AUTO) 1.7 X10'3 (1.1-4.8); LYMPHOCYTES % (AUTO) 28.6 % (21-51); MEAN CORPUSCULAR HEMOGLOBIN 28.4 PG (27.0-31.0); MEAN CORPUSCULAR HGB CONC 32.8 g/dL (33.0-36.5); MEAN CORPUSCULAR VOLUME 86.6 FL (78-98); MEAN PLATELET VOLUME 9.2 FL (7.4-10.4); MONOCYTES # (AUTO) 0.4 X10'3 (0-0.9); MONOCYTES % (AUTO) 7.5 % (2-12); NEUTROPHILS # (AUTO) 3.6 X10'3 (1.8-7.7); NEUTROPHILS % (AUTO) 59.7 % (42-75); PLATELET COUNT 200 X10'3 (140-440); RED BLOOD COUNT 5.01 X10'6 (4.20-5.60); RED CELL DISTRIBUTION WIDTH 15.2 % (11.5-14.5)
[2022-07-10 13:06] LABS: ALANINE AMINOTRANSFERASE 24 U/L (12-78); ALBUMIN 3.5 G/DL (3.4-5.0); ALBUMIN/GLOBULIN RATIO 0.9 (1.1-1.5); ANION GAP 7 (8-16); ASPARTATE AMINO TRANSFERASE 20 U/L (10-37); BILIRUBIN,TOTAL 0.5 MG/DL (0.1-1.0); BLOOD UREA NITROGEN 16 MG/DL (7-18); BUN/CREATININE RATIO 16.7 (10.0-20.0); CALCIUM 8.7 MG/DL (8.5-10.1); CHLORIDE 105 MMOL/L (99-107); CREATININE 0.96 MG/DL (0.40-0.90); GLUCOSE 101 MG/DL (70-104); POTASSIUM 3.9 MMOL/L (3.5-5.1); SODIUM 139 MMOL/L (135-145); TOTAL CARBON DIOXIDE 27.2 MMOL/L (24-32); TOTAL PROTEIN 7.5 G/DL (6.4-8.2); eGFR 59 ML/MIN
[2022-07-10 13:21] LABS: ALKALINE PHOSPHATASE 88 IU/L (46-116)
[2022-07-10] MEDS ORDERED: dexamethasone sod phosphate 10mg/ml inj PO STA (17:14)
[2022-07-10] MEDS ORDERED: azithromycin 250mg tablet PO ONE (17:15)
[2022-07-10] MEDS ORDERED: AZIT-103 PO (17:16)
[2022-07-10] MEDS ORDERED: PRED20TA PO (17:16)
--- NOTE | 2022-07-10 17:37 | NUR ---
[facility] CALLED EST TIME OF ARRIVAL 10 MIN.
== END 2022-07-10 17:41 | disposition home or self-care (01) ==
LOC: ER 12:04
DX: J44.1 Chronic obstructive pulmonary disease with (acute) exacerbation (principal); I50.9 Heart failure, unspecified; E11.9 Type 2 diabetes mellitus without complications; F15.20 Other stimulant dependence, uncomplicated; Z88.0 Allergy status to penicillin; Z88.6 Allergy status to analgesic agent
CPT/HCPCS: 36415; 71045; 80053; 83880; 84484; 85025; 93005; 99285; J1100